=== PATIENT | male | born 1975 | race Caucasian/White ===

== ENCOUNTER → 2020-07-18 15:19 | Outpatient (BNVA) | payer OTHER, SELFPAY | PROVIDERS: PCP Internal Medicine; Visit Provider Anesthesiology | DX: M54.5 Low back pain (principal); M47.816 Spondylosis without myelopathy or radiculopathy, lumbar region; S06.9X0S Unspecified intracranial injury without loss of consciousness, sequela | CPT/HCPCS: 99214 ==

== ENCOUNTER → 2020-10-26 16:25 | Outpatient (BNVA) | payer OTHER, SELFPAY | PROVIDERS: PCP Internal Medicine; Visit Provider Anesthesiology | DX: M47.816 Spondylosis without myelopathy or radiculopathy, lumbar region (principal); S06.9X0S Unspecified intracranial injury without loss of consciousness, sequela | CPT/HCPCS: 99212 ==